=== PATIENT | male | born 1960 | race Caucasian/White ===

== ENCOUNTER 2019-10-13 09:44 | Outpatient (RCR) | payer OTHER | END 2019-10-13 11:47 | disposition home or self-care (01) | PROVIDERS: ATTEND Surgery | DX: M79.604 Pain in right leg (principal) ==

== ENCOUNTER 2020-04-22 06:49 | Emergency (ER) | payer OTHER ==
[2020-04-22] MEDS ORDERED: NS IV 1000 ML 1,000 ML IV SCH ×2 (07:00→07:45)
--- NOTE | 2020-04-22 07:08 | ED Abdominal Pain ---
General Chief Complaint: Abdominal/GI Problems Stated Complaint: ABDOMINAL PAIN/DIARRHEA Nursing Triage Note: Pt brought in by ems complaining of a dark, tarry stool at home with abd pain Sepsis Screen: No Definite Risk Source of Information: Patient Exam Limitations: No Limitations History of Present Illness Date Seen by Provider: Apr 22, 2020 Time Seen by Provider: 06:55 Initial Comments 60 y/o male presents via EMS w c/o black stools/ diarrhea which began over the last 24 hours. Associated upper abdominal pain. No CP or SOA, no lighthea dedness or dizziness. Denies Hx of ulcers or stomach problems. On no medications and no significant PMHX Allergies and Home Medications Allergies Coded Allergies: No Known Drug Allergies (Unverified , 04/22/20) Home Medications Famotidine 20 Mg Tablet, 20 MG PO BID Prescribed by: CIPRIANO ANDERSON on 04/22/20 0739 Ondansetron 4 Mg Tab.rapdis, 4 MG PO TID Prescribed by: CIPRIANO ANDERSON on 04/22/20 0739 Patient Home Medication List Home Medication List Reviewed: Yes Review of Systems Review of Systems Constitutional: No chills, No diaphoresis, No fever, No malaise; weakness EENTM: No Symptoms Reported Respiratory: No Symptoms Reported Cardiovascular: No Symptoms Reported; Denies Chest Pain, Denies Edema, Denies Irregular Heart Rate, Denies Lightheadedness, Denies Palpitations, Denies Syncope Gastrointestinal: See HPI, Abdominal Pain, Diarrhea; Denies Nausea; Poor Appetite, Rectal Bleeding (DARK stools); Denies Vomiting Genitourinary: No Symptoms Reported Musculoskeletal: no symptoms reported Skin: no symptoms reported Psychiatric/Neurological: Denies Headache, Denies Numbness, Denies Paresthesia Past Nkskars-Rchrpk-Ytgjbg Hx Past Med/Social Hx: Reviewed Nursing Past Med/Soc Hx Patient Social History Alcohol Use: Denies Use Recent Infectious Disease Expo: No Recent Hopitalizations: No Past Medical History Surgeries: No Respiratory: No Cardiac: No Neurological: No Genitourinary: No Gastrointestinal: No Musculoskeletal: No Endocrine: No HEENT: No Cancer: No Psychosocial: No Integumentary: No Physical Exam Vital Signs Vital Signs - First Documented 04/22/20 06:49 Temp 36.8 Pulse 135 Resp 20 B/P (MAP) 119/84 (96) Pulse Ox 95 O2 Delivery Room Air Capillary Refill : Less Than 3 Seconds Height/Weight/BMI Height: '" Weight: lbs. oz. kg; BMI Method: General Appearance: WD/WN, no apparent distress HEENT: PERRL/EOMI, normal ENT inspection Neck: non-tender, supple Respiratory: chest non-tender, lungs clear, normal breath sounds, no respiratory distress, no accessory muscle use Cardiovascular: regular rate, rhythm, no edema, no JVD Gastrointestinal: normal bowel sounds, soft, no organomegaly, no pulsatile mass, tenderness (mild, epigastrifd) Extremities: normal range of motion, non-tender, no pedal edema, no calf tenderness Back: normal inspection, no CVA tenderness Neurologic/Psychiatric: no motor/sensory deficits, alert, normal mood/affect, oriented x 3 Skin: normal color, warm/dry Progress/Results/Core Measures Results/Orders Lab Results Laboratory Tests Test 04/22/20 06:53 Range/Units White Blood Count 10.3 4.3-11.0 10^3/uL Red Blood Count 4.33 L 4.35-5.85 10^6/uL Hemoglobin 14.6 13.3-17.7 G/DL Hematocrit 43 40-54 % Mean Corpuscular Volume 98 80-99 FL Mean Corpuscular Hemoglobin 34 25-34 PG Mean Corpuscular Hemoglobin Concent 34 32-36 G/DL Red Cell Distribution Width 11.9 10.0-14.5 % Platelet Count 250 130-400 10^3/uL Mean Platelet Volume 10.7 H 7.4-10.4 FL Immature Granulocyte % (Auto) 1 % Neutrophils (%) (Auto) 57 42-75 % Lymphocytes (%) (Auto) 32 12-44 % Monocytes (%) (Auto) 9 0-12 % Eosinophils (%) (Auto) 1 0-10 % Basophils (%) (Auto) 1 0-10 % Neutrophils # (Auto) 5.9 1.8-7.8 X 10^3 Lymphocytes # (Auto) 3.2 1.0-4.0 X 10^3 Monocytes # (Auto) 1.0 0.0-1.0 X 10^3 Eosinophils # (Auto) 0.1 0.0-0.3 10^3/uL Basophils # (Auto) 0.1 0.0-0.1 10^3/uL Immature Granulocyte # (Auto) 0.1 0.0-0.1 10^3/uL Sodium Level 136 135-145 MMOL/L Potassium Level 3.8 3.6-5.0 MMOL/L Chloride Level 99 98-107 MMOL/L Carbon Dioxide Level 24 21-32 MMOL/L Anion Gap 13 5-14 MMOL/L Blood Urea Nitrogen 26 H 7-18 MG/DL Creatinine 0.81 0.60-1.30 MG/DL Estimat Glomerular Filtration Rate > 60 BUN/Creatinine Ratio 32 Glucose Level 131 H 70-105 MG/DL Calcium Level 9.7 8.5-10.1 MG/DL Corrected Calcium 9.6 8.5-10.1 MG/DL Total Bilirubin 0.4 0.1-1.0 MG/DL Aspartate Amino Transf (AST/SGOT) 37 H 5-34 U/L Alanine Aminotransferase (ALT/SGPT) 52 0-55 U/L Alkaline Phosphatase 109 40-136 U/L Troponin I < 0.30 <0.30 NG/ML Total Protein 6.9 6.4-8.2 GM/DL Albumin 4.1 3.2-4.5 GM/DL Lipase 16 8-78 U/L My Orders Orders - ROVENSTINE,CIPRIANO L DO Diltiazem Injection (Cardizem Injection) (04/22/20 07:00) Ns Iv 1000 Ml (Sodium Chloride 0.9%) (04/22/20 07:00) Cbc With Automated Diff (04/22/20 06:58) Comprehensive Metabolic Panel (04/22/20 06:58) Urinalysis (04/22/20 06:58) Acute Abd Series (04/22/20 06:58) Ekg Tracing (04/22/20 06:58) Ed Iv/Invasive Line Start (04/22/20 06:58) Lipase (04/22/20 06:58) Troponin I Fs (04/22/20 06:58) Ns Iv 1000 Ml (Sodium Chloride 0.9%) (04/22/20 07:45) Vital Signs/I&O 04/22/20 06:49 Temp 36.8 Pulse 135 Resp 20 B/P (MAP) 119/84 (96) Pulse Ox 95 O2 Delivery Room Air Blood Pressure Mean: 96 Initial ECG Impression Date: Apr 22, 2020 Initial ECG Impression Time: 07:00 Initial ECG Rate: 123 Initial ECG Rhythm: S.Tach Initial ECG Intervals: Normal Initial ECG Impression: Normal Initial ECG Comparisson: No Previous ECG Available Departure Impression Primary Impression: Diarrhea Qualified Codes: R19.7 - Diarrhea, unspecified Additional Impressions: Dehydration Epigastric pain Disposition: 01 HOME, SELF-CARE Condition: Improved Departure-Patient Inst. Decision time for Depature: 07:38 Referrals: LENA SOLARES MD, ([facility]) (PCP) Primary Care Physician NO,LOCAL PHYSICIAN (Family) Primary Care Physician [facility] [place] Patient Instructions: Dehydration, Adult (DC), Diarrhea in Adolescents and Adults, Gastritis ED Add. Discharge Instructions: Follow up with your PCP in 1 week, sooner if not improving. Follow up in the nearest ER sooner if worse. You are advised to cut down on coffee and smoking as both are causes of "gastritis and ulcers" All discharge instructions reviewed with patient and/or family. Voiced understanding. Scripts Sucralfate (Carafate) 1 Gm Tablet 1 GM PO MAREDACHNe, #40 TAB Prov: CIPRIANO ANDERSON DO 04/22/20 Ondansetron (Ondansetron Odt) 4 Mg Tab.rapdis 4 MG PO TID for Nausea, #10 TAB Prov: SHESTINECIPRIANO DO 04/22/20 Famotidine (Pepcid) 20 Mg Tablet 20 MG PO BID, #30 TAB Prov: BETTYVENSTINECIPRIANO DO 04/22/20 SHESTINECIPRIANO DO Apr 22, 2020 07:08
[2020-04-22 07:16] LABS: HEMATOCRIT 43 % (40-54); HEMOGLOBIN 14.6 G/DL (13.3-17.7); MEAN CORPUSCULAR HEMOGLOBIN 34 PG (25-34); WHITE BLOOD COUNT 10.3 10^3/uL (4.3-11.0)
[2020-04-22 07:17] LABS: BASOPHILS # (AUTO) 0.1 10^3/uL (0.0-0.1); BASOPHILS % (AUTO) 1 % (0-10); EOSINOPHILS # (AUTO) 0.1 10^3/uL (0.0-0.3); EOSINOPHILS % (AUTO) 1 % (0-10); LYMPHOCYTES # (AUTO) 3.2 X 10^3 (1.0-4.0); LYMPHOCYTES % (AUTO) 32 % (12-44); MEAN CORPUSCULAR HGB CONC 34 G/DL (32-36); MEAN CORPUSCULAR VOLUME 98 FL (80-99); MEAN PLATELET VOLUME 10.7 FL (7.4-10.4); MONOCYTES % (AUTO) 9 % (0-12); NEUTROPHILS # (AUTO) 5.9 X 10^3 (1.8-7.8); NEUTROPHILS % (AUTO) 57 % (42-75); PLATELET COUNT 250 10^3/uL (130-400)
[2020-04-22 07:25] LABS: ALANINE AMINOTRANSFERASE 52 U/L (0-55); ALBUMIN 4.1 GM/DL (3.2-4.5); ALKALINE PHOSPHATASE 109 U/L (40-136); BILIRUBIN,TOTAL 0.4 MG/DL (0.1-1.0); BUN/CREATININE RATIO 32; CALCIUM 9.7 MG/DL (8.5-10.1); CARBON DIOXIDE 24 MMOL/L (21-32); CHLORIDE 99 MMOL/L (98-107); CREATININE SERUM 0.81 MG/DL (0.60-1.30); GFR ESTIMATED > 60; GLUCOSE 131 MG/DL (70-105); LIPASE 16 U/L (8-78); POTASSIUM 3.8 MMOL/L (3.6-5.0); SODIUM 136 MMOL/L (135-145); TOTAL PROTEIN 6.9 GM/DL (6.4-8.2)
[2020-04-22] MEDS ORDERED: FAMO-119 PO (07:39)
[2020-04-22] MEDS ORDERED: ONDA4TAB11 PO (07:39)
[2020-04-22] MEDS ORDERED: SUCR1TAB36 PO (07:49)
--- NOTE | 2020-04-22 07:56 | Diagnostic Imaging Report ---
CLINICAL INDICATION: Patient with upper abdominal pain since yesterday. Patient woke up this morning with black tarry stools. EXAMS: X-ray of the chest PA view and x-ray of the abdomen supine and upright views. COMPARISONS: None. FINDINGS: LUNGS/ PLEURA: Lungs are clear. There is no pneumothorax. There is no pleural effusion. MEDIASTINUM: Unremarkable. PULMONARY VASCULATURE: Unremarkable. HEART: Unremarkable. BONES/ EXTRATHORACIC SOFT TISSUE: There are degenerative spurs involving the thoracic and lumbar spine. ABDOMEN AND PELVIS: Unremarkable x-ray of the abdomen with nonobstructed bowel gas pattern. There is no evidence of abdominal free air. There is no significant stool load. There are no focal calcifications overlying the expected regions/ pathways of both kidneys, ureters, and bladder regions. IMPRESSION: 1: There is no radiographic evidence of acute cardiopulmonary process. 2: Unremarkable x-ray of the abdomen. There is no significant stool load. Dictated by: Dictated on workstation # [id number]
[2020-04-22 08:04] LABS: CLARITY,URINE CLEAR; COLOR,URINE YELLOW; GLUCOSE, URINE (UA) NEGATIVE (NEGATIVE); KETONES,URINE NEGATIVE (NEGATIVE); NITRITE,URINE NEGATIVE (NEGATIVE); PROTEIN,URINE NEGATIVE (NEGATIVE)
[2020-04-22 08:05] LABS: BILIRUBIN,URINE NEGATIVE (NEGATIVE); LEUKOCYTE ESTERASE ,URINE NEGATIVE (NEGATIVE); SQUAMOUS EPITHELIAL CELL,UR RARE /HPF
[2020-04-22 08:42] VITALS: BP 124/87
== END 2020-04-22 08:42 | disposition home or self-care (01) ==
LOC: EDUNIT# 06:49 → ER FS 06:53
DX: R19.7 Diarrhea, unspecified (principal); E86.0 Dehydration; R10.13 Epigastric pain
CPT/HCPCS: 36415; 74022; 80053; 81000; 83690; 84484; 85025; 93005

== ENCOUNTER 2021-12-19 14:56 | Emergency (ER) | payer MEDICARE, MEDICAID ==
[~2021-12-19] VITALS: Ht 187 cm; Wt 77.0 kg
[~2021-12-19 14:56] MED LIST: FAMO-119 PO; ONDA4TAB11 PO; SUCR1TAB36 PO
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
[2021-12-19] MEDS ORDERED: TETANUS,DIPTH,PERTUSS P/F (BOOSTRIX) 0.5 ML VIAL IM ONE (15:15)
[2021-12-19] MEDS ORDERED: OXYMETAZOLINE (AFRIN) 0.05% NA 30 ML BTL ONE (15:33)
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
[2021-12-19 16:31] VITALS: BP 161/104
== END 2021-12-19 18:17 | disposition short-term general hospital (02) ==
LOC: EDUNIT# 14:56 → ER FS 14:59
DX: S02.2XXA Fracture of nasal bones, initial encounter for closed fracture (principal); S06.5X0A Traumatic subdural hemorrhage without loss of consciousness, initial encounter; Z28.310 Unvaccinated for COVID-19; Y04.2XXA Assault by strike against or bumped into by another person, initial encounter
CPT/HCPCS: 70450; 70486; 72125; 90715